=== PATIENT | female | born 1940 | race Caucasian/White ===

== ENCOUNTER 2024-07-25 14:10 | Inpatient (IN) | payer OTHER ==
[~2024-07-25] VITALS: Ht 157.5 cm; Wt 72.6 kg
[2024-07-25] MEDS: BISOPROLOL FUMARATE 5 MG TABLET PO SCH (01:50)
[2024-07-25 14:46] LABS: SITE, VBG VBG - N/A; VBG BASE EXCESS -11.7 mmol/L (-2.0-3.0); VBG COHb 0.3 % (0.5-1.5); VBG HCO3 11.1 mmol/L (22.0-29.0); VBG MetHb 0.1 % (0.5-1.5); VBG O2Hb 69.8 % (0-79); VBG OXYGEN SATURATION 70.1 % (60.0-85.0); VBG PH 7.385 (7.320-7.430); VBG PO2 39.2 mmHg (23.0-48.0); VBG TOTAL HEMOGLOBIN 11.8 G/dL (12.0-16.0)
[2024-07-25 14:50] LABS: BASOPHILS % (AUTO) 0.1 % (0.0-2.0); EOSINOPHILS % (AUTO) 0.1 % (0.0-6.0); HEMATOCRIT 35 % (33-45); HEMOGLOBIN 10.7 g/dL (11.5-14.8); LYMPHOCYTES # (AUTO) 0.7 K/uL (0.8-4.8); LYMPHOCYTES % (AUTO) 5.7 % (20.0-44.0); MEAN CORPUSCULAR HEMOGLOBIN 31 PG (26.0-33.0); MEAN CORPUSCULAR HGB CONC 30 g/dl (31.0-36.0); MEAN CORPUSCULAR VOLUME 102 fL (82-100); MONOCYTES # (AUTO) 0.8 K/uL (0.1-1.30); MONOCYTES % (AUTO) 6.8 % (2.0-12.0); NEUTROPHILS # (AUTO) 10.5 K/uL (1.8-8.9); NEUTROPHILS % (AUTO) 87.3 % (43.0-81.0); PLATELET COUNT (AUTO) 202 K/uL (150-450); RED BLOOD CELL COUNT(AUTO) 3.45 MIL/uL (4.0-5.2); RED CELL DISTRIBUTION WIDTH 16.9 % (11.5-15.0)
[2024-07-25 15:05] LABS: ALANINE AMINOTRANSFERASE 18 U/L (12-78); ALBUMIN 3.4 g/dL (3.4-5.0); ALKALINE PHOSPHATASE 126 U/L (46-116); ASPARTATE AMINOTRANSFERASE 18 U/L (15-37); BILIRUBIN,DIRECT 0.2 mg/dL (0.0-0.2); BILIRUBIN,TOTAL 1.1 mg/dL (0.2-1.0); CALCIUM, SERUM 10.1 mg/dL (8.5-10.1); CARBON DIOXIDE 13 mmol/L (21-32); CHLORIDE 87 mmol/L (98-107); LIPASE 19 U/L (16-77); POTASSIUM 4.4 mmol/L (3.5-5.1); SODIUM SERUM 127 mmol/L (136-145); TOTAL PROTEIN, SERUM 7.7 g/dL (6.4-8.2); UREA NITROGEN, BLOOD 37 mg/dL (7-18)
[2024-07-25] MEDS: IV NS 0.9% 1,000 ML BAG IV ONE ×2 (15:25→17:04)
[2024-07-25 15:38] LABS: GLUCOSE 889 mg/dL (74-106)
[2024-07-25] MEDS ORDERED: ASPIRIN EC 325 MG TABLET.DR PO ONE (16:09)
[2024-07-25 16:13] LABS: APPEARANCE,URINE CLEAR (CLEAR); BILIRUBIN,URINE 1+ (NEGATIVE); BLOOD, URINE TRACE-INTA Ery/uL (NEGATIVE); COLOR,URINE YELLOW (YELLOW); KETONES,URINE TRACE mg/dL (NEGATIVE); LEUKOCYTE ESTERASE ,URINE NEGATIVE (NEGATIVE); NITRITE, URINE NEGATIVE (NEGATIVE); PH,URINE 5.5 (5.0-8.0); PROTEIN,URINE NEGATIVE (NEGATIVE); UGLUCOSE 3+ mg/dL (NEGATIVE); UROBILINOGEN,URINE 0.2 EU/dL (0.2)
[2024-07-25] MEDS: ASPIRIN 325 MG TABLET PO ONE (16:17)
[2024-07-25] MEDS ORDERED: AZTREONAM 2 G in IV NS 0.9% 100 ML IV ONE (16:30)
[2024-07-25 16:42] LABS: ADD URINE CULTURE YES; BACTERIA,URINE Few /HPF (None Seen); SQUAMOUS EPITHELIAL CELL,UR Many /HPF (None Seen)
[2024-07-25] MEDS: INSULIN REGULAR, HUMAN 100 UNITS in IV NS 0.9% 100 ML IV PRN (16:47)
[2024-07-25] MEDS: CEFTRIAXONE 1GM BAG (ER ONLY) 50 ML IV ONE (17:04)
[2024-07-25 17:38] LABS: LACTIC ACID 8.5 mmol/L (0.4-2.0)
[2024-07-25] MEDS: AZITHROMYCIN 500 MG in IV D5W 250 ML IV ONE (17:45)
[2024-07-25] MEDS ORDERED: APIX2.5T PO (21:14)
[2024-07-25] MEDS ORDERED: ATOR40TA PO (21:14)
[2024-07-25] MEDS ORDERED: RISP0.5T65 PO (21:14)
[2024-07-25] MEDS ORDERED: CHOL400T11 PO (21:14)
[2024-07-25] MEDS ORDERED: BISO5TAB20 PO (21:14)
[2024-07-25] MEDS ORDERED: DIVA125C5 PO (21:14)
[2024-07-25] MEDS ORDERED: INSU100I28 SQ (21:14)
[2024-07-25] MEDS ORDERED: CALC-1239 PO (21:14)
[2024-07-25] MEDS ORDERED: SPIR25TA6 PO (21:14)
[2024-07-25] MEDS ORDERED: LEVO88TA5 PO (21:14)
[2024-07-25] MEDS ORDERED: AMLO2.5T4 PO (21:14)
[2024-07-25] MEDS ORDERED: SEMGLEE SQ (21:14)
[2024-07-25] MEDS ORDERED: FURO40TA5 PO (21:14)
[2024-07-25] MEDS ORDERED: POTA10CA43 PO (21:14)
[2024-07-25] MEDS ORDERED: CYAN100T44 PO (21:14)
[2024-07-25] MEDS ORDERED: ASCO500C18 PO (21:14)
[2024-07-25 22:05] LABS: CALCIUM, SERUM 9.6 mg/dL (8.5-10.1); CREATININE 2.5 mg/dL (0.6-1.3); POTASSIUM 3.7 mmol/L (3.5-5.1)
[2024-07-25] MEDS ORDERED: ONDANSETRON HCL/PF 4 MG/2 ML VIAL IVP PRN (23:30)
[2024-07-25] MEDS ORDERED: ACETAMINOPHEN 325 MG TABLET PO PRN (23:30)
[2024-07-25] MEDS ORDERED: DEXTROSE 50%-WATER 50 ML DISP.SYRIN IV PRN (23:30)
[2024-07-26 00:40] VITALS: BP 93/61; TEMP 97.5; O2SAT 93
[2024-07-26] MEDS: APIXABAN 2.5 MG TABLET PO SCH (01:26)
[2024-07-26] MEDS ORDERED: INSULIN REGULAR, HUMAN 100 UNIT/ML 10 ML VIAL ONE (01:27)
[2024-07-26] MEDS ORDERED: INSULIN GLARGINE, 100 UNIT/ML CARTRIDGE SQ ONE (01:28)
[2024-07-26] MEDS: BLOOD SUGAR DIAGNOSTIC 1 EACH STRIP IN SCH (01:43)
[2024-07-26] MEDS: *INSULIN REGULAR(HUMULIN R)HUM 100 UNIT/ML VIAL SQ PRN (01:47)
[2024-07-26] MEDS: INSULIN GLARGINE, 100 UNIT/ML CARTRIDGE SQ SCH (01:49)
[2024-07-26] MEDS: IV NS 0.9% 1,000 ML IV PRN (03:08)
[2024-07-26 04:00] VITALS: BP 95/67; TEMP 97.7; O2SAT 99
[2024-07-26 07:51] LABS: CALCIUM, SERUM 9.3 mg/dL (8.5-10.1); CREATININE 1.9 mg/dL (0.6-1.3); MAGNESIUM 1.9 mg/dL (1.8-2.4); PHOSPHORUS 3.4 mg/dL (2.5-4.9); POTASSIUM 3.5 mmol/L (3.5-5.1)
[2024-07-26 07:55] LABS: BASOPHILS % (AUTO) 0.2 % (0.0-2.0); EOSINOPHILS # (AUTO) 0.1 K/uL (0.0-0.7); EOSINOPHILS % (AUTO) 0.7 % (0.0-6.0); HEMATOCRIT 31 % (33-45); HEMOGLOBIN 10.7 g/dL (11.5-14.8); LYMPHOCYTES % (AUTO) 7.3 % (20.0-44.0); MEAN CORPUSCULAR HEMOGLOBIN 32 PG (26.0-33.0); MEAN CORPUSCULAR HGB CONC 34 g/dl (31.0-36.0); MEAN CORPUSCULAR VOLUME 93 fL (82-100); MONOCYTES # (AUTO) 0.6 K/uL (0.1-1.30); MONOCYTES % (AUTO) 4.6 % (2.0-12.0); NEUTROPHILS # (AUTO) 12.3 K/uL (1.8-8.9); NEUTROPHILS % (AUTO) 87.2 % (43.0-81.0); PLATELET COUNT (AUTO) 188 K/uL (150-450); RED BLOOD CELL COUNT(AUTO) 3.38 MIL/uL (4.0-5.2); RED CELL DISTRIBUTION WIDTH 15.7 % (11.5-15.0); WHITE BLOOD COUNT (AUTO) 14.1 K/uL (4.3-11.0)
[2024-07-26 08:00] VITALS: BP 98/57; TEMP 97.7; O2SAT 97
[2024-07-26] MEDS: FUROSEMIDE 40 MG TABLET PO SCH (09:00)
[2024-07-26] MEDS: AMLODIPINE BESYLATE 2.5 MG TABLET PO SCH (09:00)
[2024-07-26] MEDS: ATORVASTATIN 40 MG TABLET PO SCH (09:14)
[2024-07-26] MEDS: DIVALPROEX SODIUM 125 MG CAP.SPRINK PO SCH (09:14)
[2024-07-26] MEDS: LEVOTHYROXINE SODIUM 88 MCG TABLET PO SCH (09:15)
[2024-07-26] MEDS: risperiDONE 0.25 MG TABLET PO SCH (09:15)
[2024-07-26] MEDS: CHOLECALCIFEROL (VITAMIN D 3) 400 UNIT TABLET PO SCH (09:15)
[2024-07-26] MEDS: CYANOCOBALAMIN 100 MCG TABLET PO SCH (09:16)
[2024-07-26] MEDS: SPIRONOLACTONE 25 MG TABLET PO SCH (09:17)
[2024-07-26] MEDS: CALCIUM CARB 600MG /VIT D 1 EACH TABLET PO SCH (09:21)
[2024-07-26] MEDS: ASCORBIC ACID 500 MG TABLET PO SCH (09:21)
[2024-07-26 12:00] VITALS: BP 97/66; TEMP 97.8; O2SAT 99
[2024-07-26] MEDS: INSULIN REGULAR, HUMAN 100 UNIT/ML 3 ML VIAL SQ PRN (12:08)
[2024-07-26] MEDS: DIGOXIN INJ 0.5 MG/2 ML AMPUL IV SCH (12:13)
[2024-07-26] MEDS: AZITHROMYCIN 500 MG in IV D5W 250 ML IV SCH (15:07)
[2024-07-26 16:00] VITALS: BP 94/71; TEMP 98.2; O2SAT 99
[2024-07-26] MEDS: CEFTRIAXONE 1 G in IV D5W 50 ML IV SCH (17:22)
[2024-07-26 20:00] VITALS: BP 112/78; TEMP 97.7; O2SAT 98
== END 2024-07-26 21:00 | disposition short-term general hospital (02) | DRG 637 ==
LOC: ER 14:17 → ICU 20:55 → TELE1 23:34
PROVIDERS: ADMIT Nurse Practitioner Acute Care; ATTEND Nurse Practitioner Acute Care
DX: E11.10 Type 2 diabetes mellitus with ketoacidosis without coma (principal); I21.4 Non-ST elevation (NSTEMI) myocardial infarction; J15.9 Unspecified bacterial pneumonia; N17.0 Acute kidney failure with tubular necrosis; I13.0 Hypertensive heart and chronic kidney disease with heart failure and stage 1 through stage 4 chronic kidney disease, or unspecified chronic kidney disease; I48.20 Chronic atrial fibrillation, unspecified; E87.1 Hypo-osmolality and hyponatremia; I50.32 Chronic diastolic (congestive) heart failure; Z20.822 Contact with and (suspected) exposure to COVID-19; E11.22 Type 2 diabetes mellitus with diabetic chronic kidney disease; N18.9 Chronic kidney disease, unspecified; E78.00 Pure hypercholesterolemia, unspecified; E80.6 Other disorders of bilirubin metabolism; D53.9 Nutritional anemia, unspecified; Z79.890 Hormone replacement therapy; Z79.4 Long term (current) use of insulin; Z79.01 Long term (current) use of anticoagulants; Z79.899 Other long term (current) drug therapy; E86.0 Dehydration; E86.1 Hypovolemia; M89.8X9 Other specified disorders of bone, unspecified site; S81.802A Unspecified open wound, left lower leg, initial encounter; S81.801A Unspecified open wound, right lower leg, initial encounter; X58.XXXA Exposure to other specified factors, initial encounter; Y92.9 Unspecified place or not applicable
CPT/HCPCS: 36415; 71045-TC; 76770-TC; 80048-TC; 80076-TC; 81001; 82010-TC; 82803-TC; 82962-TC; 83605-TC; 83690-TC; 83735-TC; 84100-TC; 84484-TC; 85025-TC; 87040-TC; 87081-TC; 87086-TC; A4223; G0378; J0456; J0696; J1160; J1815; J7030; J7060